=== PATIENT | male | born 1960 | race Caucasian/White ===

== ENCOUNTER → 2018-12-24 | Outpatient (CLI) | payer OTHER ==
--- NOTE | 2018-12-24 10:33 | REP ---
Clinical: Pain. Technique: AP, lateral, bilateral oblique views of the right foot. Findings: Age-related degenerative changes include mild hallux valgus deformity at the first metatarsophalangeal joint with subtle increased sclerosis to the head of the metatarsal bone and minimal joint space narrowing. Mild arthritic changes also identified at the fifth interphalangeal joint with subtle sclerosis and minimal disc space narrowing. Remainder examination is relatively normal for age. No acute fracture dislocation. Surrounding soft tissues are unremarkable. Impression: Mild degenerative changes suggested at the first and fifth digits. Electronically Signed by Khari Ramos MD 12/24/2018 10:24 A
[2018-12-24 15:53] LABS: BASO # 0.1 10^3/uL (0.0-0.2); BASO % 0.8 % (0.0-1.0); EOS # 0.1 10^3/uL (0.0-0.50); EOS % 1.8 % (0.0-3.0); HEMOGLOBIN 17.3 g/dl (13.5-17.5); LYMPH # 1.7 10^3/uL (1.5-4.5); MEAN CORPUSCULAR HEMOGLOBIN 30.5 pg (27.0-33.0); MEAN CORPUSCULAR HGB CONC 33.9 g/dl (32.0-36.5); MEAN CORPUSCULAR VOLUME 89.8 fl (80.0-96.0); MONO # 0.5 10^3/uL (0.0-0.8); MONO % 7.5 % (0.0-5.0); NEUTROPHILS # 3.8 10^3/uL (1.8-7.7); NEUTROPHILS % 62.6 % (36.0-66.0); PLATELET COUNT, AUTOMATED 241 10^3/uL (150-450); RED BLOOD COUNT 5.68 10^6/uL (4.30-6.10); WHITE BLOOD COUNT 6.1 10^3/uL (4.0-10.0)
== END ==
LOC: M WUC 09:15
PROVIDERS: ATTEND Physician Assistant
DX: M19.071 Primary osteoarthritis, right ankle and foot (principal); M20.11 Hallux valgus (acquired), right foot

== ENCOUNTER 2019-01-17 04:56 | Emergency (ER) | payer OTHER ==
[~2019-01-17] VITALS: Ht 167.6 cm; Wt 84.1 kg
[2019-01-17] MEDS ORDERED: MELO15TA28 PO (05:04)
[2019-01-17] MEDS ORDERED: ATEN25TA PO (05:04)
[2019-01-17] MEDS ORDERED: methylPREDNISolone INJ 125 MG/2 ML VIAL (J2930) IV ONE (06:45)
[2019-01-17 06:59] LABS: HEMATOCRIT 48.3 % (42.0-52.0); HEMOGLOBIN 16.3 g/dl (13.5-17.5); MEAN CORPUSCULAR HGB CONC 33.7 g/dl (32.0-36.5); PLATELET COUNT, AUTOMATED 189 10^3/uL (150-450); RED BLOOD COUNT 5.43 10^6/uL (4.30-6.10)
[2019-01-17 07:37] LABS: ERYTHROCYTE SEDIMENTATION RATE 5 mm/hr (0-20)
[2019-01-17] MEDS ORDERED: ISOVUE-370 76% 100ML VIAL (Q9967) As Ordered ONE (07:56)
[2019-01-17] MEDS ORDERED: cefTRIAXone SOD 2 GM in D5W MINI-BAG PLUS 50 ML IV ONE (09:15)
[2019-01-17] MEDS ORDERED: KEFL500C17 PO (09:36)
[2019-01-17 10:05] VITALS: BP 165/85
--- NOTE | 2019-01-17 10:37 | REP ---
CT ORBITS WITH IV CONTRAST: CT orbits performed following the intravenous administration of 100 mL of Isovue 370. Sagittal and coronal reconstruction images are performed. There is superficial soft tissue edema in the left periorbital region and there is now extension into the orbit. There is no fluid collection. The globes are intact. Orbits are symmetrical in appearance with no abnormal enhancement. No other soft tissue abnormality is seen. The visualized osseous structures appear intact. The paranasal sinuses are clear with no abnormal opacification. Mastoid air cells are well developed and clear. IMPRESSION: Left periorbital preseptal cellulitis. No abscess. Electronically Signed by Cy Angela MD 01/18/2019 01:29 P
== END 2019-01-17 10:21 | disposition home or self-care (01) ==
LOC: M ED 04:56
DX: H05.012 Cellulitis of left orbit (principal); L03.213 Periorbital cellulitis; I10 Essential (primary) hypertension; E78.5 Hyperlipidemia, unspecified; Z79.899 Other long term (current) drug therapy
CPT/HCPCS: 36415; 70481; 80047; 85027; 85652; 86140; 96365; 96375; 99284; J0696; J2930; Q9967

== ENCOUNTER → 2022-02-14 | Outpatient (CLI) | payer OTHER ==
[~2022-02-14] MED LIST: ATEN25TA PO; KEFL500C17 PO; MELO15TA28 PO
== END ==
LOC: M WUC 10:07
PROVIDERS: ATTEND Student in an Organized Health Care Education/Training Program
DX: M54.50 Low back pain, unspecified (principal)

== ENCOUNTER → 2023-07-20 | Outpatient (CLI) | payer OTHER | LOC: M WUC 10:10 | PROVIDERS: ATTEND Nurse Practitioner Family | DX: M25.571 Pain in right ankle and joints of right foot (principal) ==

== ENCOUNTER 2023-11-25 08:42 | Day surgery (SDC) | payer OTHER ==
[~2023-11-25] VITALS: Ht 167.6 cm; Wt 80.0 kg
[2023-11-25] MEDS ORDERED: fentaNYL 100 MCG/2 ML INJECTION As Ordered ONE (08:46)
[2023-11-25] MEDS: NS 1,000 ML IV ONE (09:07)
[2023-11-25] MEDS ORDERED: LIDOCAINE 2% 100MG/5ML SDV (FOR ANES.) As Ordered ONE (09:55)
[2023-11-25] MEDS ORDERED: propofoL 200 MG/20 ML VIAL As Ordered ONE (09:55)
[2023-11-25 10:08] VITALS: TEMP 98.1
[2023-11-25 10:20] VITALS: BP 142/89; O2SAT 97
== END 2023-11-25 10:25 | disposition home or self-care (01) ==
LOC: M OPP 08:42
PROVIDERS: ATTEND Internal Medicine Gastroenterology
DX: Z12.11 Encounter for screening for malignant neoplasm of colon (principal); K64.0 First degree hemorrhoids; K57.30 Diverticulosis of large intestine without perforation or abscess without bleeding; K22.89 Other specified disease of esophagus; K44.9 Diaphragmatic hernia without obstruction or gangrene; R12 Heartburn; I10 Essential (primary) hypertension; Z79.899 Other long term (current) drug therapy
CPT/HCPCS: 43239; 45378; 88305; J3010